=== PATIENT | female | born 1990 | race Caucasian/White ===

== ENCOUNTER 2016-08-01 21:53 | Inpatient (IN) ==
[2016-08-01 22:30] LABS: URINE SOURCE VOIDED
[2016-08-01 22:36] LABS: BILIRUBIN URINE NEGATIVE (NEGATIVE); BLOOD URINE NEGATIVE (NEGATIVE); CLARITY HAZY (CLEAR); COLOR YELLOW; GLUCOSE URINE NEGATIVE (NEGATIVE); LEUKOCYTES URINE 2+ (NEGATIVE); NITRITE URINE NEGATIVE (NEGATIVE); PROTEIN URINE NEGATIVE (NEGATIVE); SP GRAVITY URINE 1.005; UROBILINOGEN URINE NORMAL
[2016-08-02] MEDS: STADOL IV PRN ×3 (01:08→06:58)
[2016-08-02] MEDS: LR 1,000 ML IV SCH ×2 (01:08→08:39)
[2016-08-02] MEDS: AMPICILLIN 2 GM/NS 2 GM/100 ML IVPB IV SCH ×4 (01:11→18:47)
[2016-08-02 10:16] LABS: MANUAL DIFF NEEDED? NO
[2016-08-02 10:25] LABS: BASO% 0.2 % (0.0-0.8); EOS# 0.31 X1000 (0.0-0.7); EOS% 1.9 % (0.0-10.0); HEMATOCRIT 32.9 % (37.0-47.0); HEMOGLOBIN 10.7 g/dL (12.0-16.0); IMM GRAN# 0.13 X1000 (0.0-0.04); IMM GRAN% 0.8 % (0.0-0.5); LYMPH# 2.68 X1000 (1.2-3.4); LYMPH% 16.3 % (20.5-51.1); MCH 30.4 PG (27-31); MCHC 32.5 g/dL (33-37); MCV 93.5 FL (81-99); MONO% 5.5 % (1.7-9.3); MPV 11.2 FL (7.4-10.4); NEUT% 75.3 % (42.2-75.2); PLT 307 X1000 (130-400); RBC 3.52 XMIL (4.2-5.4)
[2016-08-02] MEDS ORDERED: STADOL IV PRN (12:05)
[2016-08-02] MEDS ORDERED: LR 500 ML IV ONE (12:05)
[2016-08-02] MEDS ORDERED: PEPCID PO PRN (12:05)
[2016-08-02] MEDS ORDERED: PEPCID IV PRN (12:05)
[2016-08-02] MEDS ORDERED: ZOFRAN IV PRN (12:05)
[2016-08-02] MEDS ORDERED: TYLENOL PO PRN (12:05)
[2016-08-02] MEDS ORDERED: PEPCID PO ONE (12:05)
[2016-08-02] MEDS ORDERED: KEFZOL 1 GM/D5W 1 GM/50 ML IVPB IV PRN (12:05)
[2016-08-02] MEDS ORDERED: REGLAN PO ONE (12:05)
[2016-08-02] MEDS ORDERED: LR 1,000 ML IV SCH (12:15)
[2016-08-02] MEDS ORDERED: SODIUM CHLORIDE 0.9% INJ SCH (12:15)
[2016-08-02] MEDS ORDERED: PITOCIN 30 UNITS/LR 30 UNITS/500 ML IV.SOLN IV SCH (12:15)
[2016-08-02] MEDS ORDERED: MARCAINE 0.25% PF INJ ONE (12:45)
[2016-08-02] MEDS ORDERED: FENTANYL-BUPIV-NS 2 MCG-0.1% 200 ML EPIDURAL SCH (13:00)
[2016-08-02] MEDS ORDERED: XYLOCAINE-MPF 1% INJ ONE (20:49)
[2016-08-02] MEDS ORDERED: MINERAL OIL PO ONE (20:49)
--- NOTE | 2016-08-02 22:11 | OPERATIVE NOTE ---
PROCEDURE DATE: 08/02/2016 PREDELIVERY DIAGNOSES: 1. Intrauterine at 35 weeks. 2. labor. POST DELIVERY DIAGNOSES: 1. Intrauterine at 35 weeks. 2. labor. 3. Nuchal cord. PROCEDURE: Vaginal delivery viable. PHYSICIAN: Dr. Santos. ANESTHESIA: Epidural done by Dr. Ortega. FINDINGS: Viable female , 4 pounds 14 ounces, 10/10 Apgars. ESTIMATED BLOOD LOSS: 100 mL. No lacerations or tears. All counts correct. Please refer to Ms. Kohli's records. DESCRIPTION OF DELIVERY: She was admitted last night with regular uterine contractions at 35 weeks. Due to the persistence of the contraction she was admitted, started on antibiotics. Overnight she was sedated, exhibited a little bit of cervical change and early this morning just exhibited definitive cervical change so she was admitted, augmented with Pitocin, received epidural anesthesia, was artificially ruptured. After 5 doses of antibiotics and approximately 30 minutes later she was complete and pushing. Bed was broken down. She was prepped and draped. Next contraction she delivered a viable female occiput anterior over an intact perineum. Nuchal cord x3 was reduced and delivered and placed on mother's abdomen. Cord was doubly clamped and cut. Care of was taken over by nursery personnel. Cord blood was obtained then the cord was inspected and found to be 3 vessels. Gentle traction on the cord resulted in delivery of the placenta after approximately 4 minutes. It was inspected and found to be intact. Inspection of the vagina and perineum did not reveal any lacerations. There were no clots or foreign material. All counts were correct and expect routine . cc: Chinedu Santos MD
[2016-08-02] MEDS ORDERED: CYTOTEC PO PRN (22:31)
[2016-08-02] MEDS ORDERED: HYDROXYZINE IM PRN (22:31)
[2016-08-02] MEDS ORDERED: BENADRYL PO PRN (22:31)
[2016-08-02] MEDS ORDERED: PITOCIN IM PRN (22:31)
[2016-08-02] MEDS ORDERED: BENADRYL IV PRN (22:31)
[2016-08-02] MEDS ORDERED: HYDROXYZINE PO PRN (22:31)
[2016-08-02] MEDS ORDERED: MINERAL OIL PO PRN (22:31)
[2016-08-02] MEDS ORDERED: PITOCIN 20 UNITS/LR 20 UNITS/1,000 ML IV.SOLN IV SCH (22:31)
[2016-08-02] MEDS ORDERED: NORCO-10 PO PRN (22:31)
[2016-08-02] MEDS ORDERED: PITOCIN 30 UNITS/LR 30 UNITS/500 ML IV.SOLN IV ONE (22:31)
[2016-08-02] MEDS ORDERED: BOOSTRIX VACCINE IM ONE (22:31)
[2016-08-02] MEDS ORDERED: NORCO-5 PO PRN (22:31)
[2016-08-02] MEDS ORDERED: AMBIEN PO PRN (22:31)
[2016-08-02] MEDS ORDERED: M-M-R II VACCINE SUBQ ONE (22:31)
[2016-08-02] MEDS ORDERED: MOTRIN PO PRN (22:31)
[2016-08-02] MEDS ORDERED: XYLOCAINE-MPF 1% INJ PRN (22:31)
[2016-08-02] MEDS ORDERED: PERI MEDS (DERMOPLAST/NUPERCAINAL/TUCKS) MISC PRN (22:31)
[2016-08-03 06:53] LABS: BASO% 0.1 % (0.0-0.8); EOS# 0.15 X1000 (0.0-0.7); EOS% 0.7 % (0.0-10.0); HEMOGLOBIN 9.4 g/dL (12.0-16.0); IMM GRAN# 0.07 X1000 (0.0-0.04); IMM GRAN% 0.3 % (0.0-0.5); LYMPH# 2.19 X1000 (1.2-3.4); LYMPH% 10.5 % (20.5-51.1); MANUAL DIFF NEEDED? YES; MCH 30.1 PG (27-31); MCHC 32.4 g/dL (33-37); MCV 92.9 FL (81-99); MONO# 1.08 X1000 (0.11-0.59); MONO% 5.2 % (1.7-9.3); MPV 11.3 FL (7.4-10.4); NEUT% 83.2 % (42.2-75.2); PLT 303 X1000 (130-400); RBC 3.12 XMIL (4.2-5.4)
[2016-08-03 07:29] LABS: BANDS 3 % (0-1); LYMPHS 8 % (21-51); MONO 2 % (1-9)
[2016-08-03] MEDS: PRECARE PO SCH (09:08)
--- NOTE | 2016-08-03 11:55 | PROGRESS NOTE ---
DATE: 08/03/2016 SUBJECTIVE: She is day 1. Ms. Kohli has no complaints. She has ambulated. She has voided. She has tolerated p.o. without difficulty. PHYSICAL EXAMINATION: Vital Signs: Temperature 96.9 degrees, pulse 67, respiratory rate 20, blood pressure 117/59. General: She is alert and cooperative, does not appear to be in any distress. Abdomen: Slightly distended. Her uterus is firm and nontender. Extremities: No cyanosis, clubbing, or edema in her extremities. LABORATORY DATA: Hemoglobin and hematocrit of 9.4 and 29. That is down slightly from 10.7 at admission. ASSESSMENT AND PLAN: It should be noted that she has a leukocytosis. She was 16.4 when she was admitted on the . This morning, it was 20. I feel this is probably due to stress. She was in labor and she did get multiple doses of antibiotics. I doubt infection. We will continue routine course. We will not repeat labs unless some change in patient's condition. Expect discharge in the morning. cc: Chinedu Santos MD
[2016-08-03] MEDS: PERICOLACE PO SCH (22:00)
--- NOTE | 2016-08-04 11:57 | PROGRESS NOTE ---
DATE: 08/04/2016 SUBJECTIVE: She is day 2. Ms. Kohli is without complaints. She is tolerating p.o., ambulating, and voiding. She would preferred not to be discharged after delivering so late Thursday night, so we will honor that. OBJECTIVE: Vital Signs: Pulse 82, respirations 18, blood pressure 117/67, temperature 97 degrees. General: She is alert and cooperative, in no distress. Neck: Supple. Lungs: Clear. Heart: Regular sinus rhythm. Abdomen/Pelvis: Distended. Uterus is firm and nontender. Extremities: No cyanosis, clubbing, or edema in her extremities. LABORATORY DATA: No new laboratory values. PLAN: We will continue routine and expect discharge in the morning. cc: Chinedu Santos MD
[2016-08-04] MEDS: PRECARE PO SCH (17:40)
[2016-08-04] MEDS: PERICOLACE PO SCH (21:17)
[2016-08-05 08:13] VITALS: BP 139/67
[2016-08-05] MEDS: PRECARE PO SCH (08:13)
== END 2016-08-05 08:50 | disposition home or self-care (01) ==
LOC: P.NBC 21:53 → P.LD 22:01
PROVIDERS: ADMIT Obstetrics & Gynecology; ATTEND Obstetrics & Gynecology